=== PATIENT | female | born 1975 | race Caucasian/White ===

== ENCOUNTER 2018-06-01 16:27 | Inpatient (IN) ==
[2018-06-01] MEDS ORDERED: ASPIRIN PO ONE (16:55)
[2018-06-01] MEDS ORDERED: ASPIRIN PR ONE (16:55)
--- NOTE | 2018-06-01 17:14 | Diag Imaging Result Doc PS360 ---
CHEST-2 VIEWS - 06/01/2018 INDICATION: cp COMPARISON: 02/26/2018 FINDINGS: The lungs are normally expanded and clear. Heart size and mediastinal contours are normal. No pneumothorax or pleural effusion. Stable surgical clips in the left upper quadrant. IMPRESSION: Negative exam. Electronically signed by Nate Corcoran 06/01/2018 5:12 PM
[2018-06-01 17:23] LABS: BASO# 0.06 X1000 (0.0-0.2); BASO% 0.6 % (0.0-0.8); EOS# 0.16 X1000 (0.0-0.7); EOS% 1.7 % (0.0-10.0); HEMATOCRIT 46.4 % (37.0-47.0); HEMOGLOBIN 15.9 g/dL (12.0-16.0); IMM GRAN# 0.07 X1000 (0.0-0.04); IMM GRAN% 0.7 % (0.0-0.5); LYMPH# 2.33 X1000 (1.2-3.4); LYMPH% 24.9 % (20.5-51.1); MCH 27.2 PG (27-31); MCHC 34.3 g/dL (33-37); MCV 79.5 FL (81-99); MONO# 0.57 X1000 (0.11-0.59); MONO% 6.1 % (1.7-9.3); MPV 10.1 FL (7.4-10.4); NEUT# 6.16 X1000 (1.4-6.5); PLT 313 X1000 (130-400); RBC 5.84 XMIL (4.2-5.4); RDW 13.7 % (11.5-14.5); WBC 9.35 X1000 (4.8-10.8)
[2018-06-01 17:31] LABS: INR 0.84; PROTIME 12.2 Seconds (11.0-16.0); PTT 26.8 Seconds (22.3-41.8)
[2018-06-01 17:41] LABS: ESTIMATED GFR > 60
--- NOTE | 2018-06-01 17:47 | ED EKG INTERP ---
This chart was entered by Jazmin Calhoun Scribe, acting as scribe for Asa Argueta MD. EKG Interpretation - EKG Time of EKG reading by physician:: 16:28 EKG Read and Signed by:: Asa Argueta EKG Interpretation (*Must complete 3 of following elements*): Abnormal Rate: 97 Rhythm: normal sinus rhythm Comments: possible left atrial enlargement Attestation - Physician/ JAVI Attestation The physician spent face to face time with patient:: No Advanced Practice Provider documentation review:: Supervising physician onsite and consulted in the evaluation and care of this patient. The physician did not have a face to face encounter with the patient. This chart was documented by the indicated scribe, (Jazmin Calhoun Scribe) and accurately reflects the services I performed and decisions made by Kendall france Robert W., MD, as attested by the provider's signature.
[2018-06-01 17:49] LABS: AGAP 16; ALB/GLOB RATIO 1.7; ALBUMIN 4.7 g/dL (3.5-5.0); ALKALINE PHOSPHATASE 120 U/L (32-104); BUN 11 mg/dL (8-22); CALCIUM 9.9 mg/dL (8.8-10.2); CHLORIDE 86 mmol/L (98-107); CK PROFILE 63 U/L (24-173); COSMO 273; CREATININE 0.7 mg/dL (0.5-0.9); GLUCOSE 397 mg/dL (70-104); GOT 27 U/L (10-30); GPT 38 U/L (10-36); POTASSIUM 4.3 mmol/L (3.5-5.1); SODIUM 128 mmol/L (136-145); TCO2 26 mmol/L (25-35); TOTAL BILIRUBIN 0.27 mg/dL (0.20-1.00); TOTAL PROTEIN 7.4 g/dL (6.3-8.3)
[2018-06-01 20:28] LABS: URINE SOURCE CLEAN CATCH
[2018-06-01 20:42] LABS: BILIRUBIN URINE NEGATIVE (NEGATIVE); BLOOD URINE NEGATIVE (NEGATIVE); COLOR YELLOW; GLUCOSE URINE >1000 mg/dL (NEGATIVE); KETONE URINE TRACE mg/dL (NEGATIVE); LEUKOCYTES URINE NEGATIVE (NEGATIVE); NITRITE URINE NEGATIVE (NEGATIVE); PH URINE 5.5; PROTEIN URINE NEGATIVE (NEGATIVE); TURBIDITY URINE CLEAR (CLEAR); UROBILINOGEN URINE NORMAL (NORMAL)
[2018-06-01 20:44] LABS: UR EPITHELIAL CELLS <10 /HPF (<10); URINE BACTERIA NEGATIVE /HPF; URINE RBC <10 /HPF (<10); URINE WBC <10 /HPF (<10)
[2018-06-01] MEDS ORDERED: NS 1,000 ML IV ONE (20:54)
[2018-06-01] MEDS ORDERED: HUMULIN R IV ONE (20:54)
--- NOTE | 2018-06-01 23:33 | PROVIDER DOCUMENTATION ---
This chart was entered by Vickey Whittington Scribe, acting as scribe for Darin Gaona CRNP. HPI-Chest Pain - General Chief Complaint: Chest Pain Stated Complaint: CHEST PAIN Time Seen by Provider: 06/01/18 20:42 Source: patient Allergies/Adverse Reactions: Patient Allergies Allergy/AdvReac Type Severity Reaction Status Date / Time topiramate [From Topamax] Allergy SHORTNESS Verified 03/06/18 10:30 OF BREATH metoclopramide HCl * AdvReac Severe DIZZINESS Verified 03/06/18 10:30 [From Reglan] Home Medications: Home Medication List Medication Instructions Recorded Confirmed Last Taken Type Omeprazole [Prilosec] 40 mg PO PRN PRN 11/29/16 03/06/18 03/03/18 History Sitagliptin Phos/Metformin HCl 1 each PO TID 11/29/16 03/06/18 03/06/18 History [Janumet 50-500 mg Tablet] Tizanidine HCl [Zanaflex] 4 mg PO BID PRN PRN 11/29/16 06/01/18 03/06/18 History Sertraline HCl [Zoloft] 100 mg PO BID 01/07/17 06/01/18 03/06/18 History Albuterol Sulfate Inhaler 2 puff INH Q6H PRN #1 inhaler 03/06/18 Unknown Rx [Ventolin Hfa] Azithromycin [Zithromax Z-Mark] 250 mg PO DIRECTED #1 pkg 03/06/18 Unknown Rx Glimepiride 2 mg PO ACB 03/06/18 03/06/18 03/05/18 History Meclizine HCl [Antivert] 25 mg PO TID PRN PRN 03/06/18 03/06/18 03/02/18 History Nebivolol [Bystolic] 5 mg PO DAILY 03/06/18 03/06/18 03/06/18 History Nortriptyline [Pamelor] 25 mg PO BID 03/06/18 06/01/18 03/06/18 History Sulindac 200 mg PO BID 03/06/18 03/06/18 03/06/18 History Trazodone [Desyrel] 100 mg PO QHS 03/06/18 06/01/18 03/06/18 History Ibuprofen 800 mg PO Q8HR PRN #20 tab 05/19/18 Unknown Rx Triamterene/Hydrochlorothiazid 1 each PO DAILY 06/01/18 06/01/18 Unknown History [Dyazide 37.5-25 Capsule] - History of Present Illness-CP Nature of Presenting Problem: Pt is a 43 y/ow F presents to the ED with intermittent left-sided chest pain that radiates down her left arm since yesterday. Denies SOB or any other symptoms. Denies known cardiac hx, hx of DM and HTN. Non-toxic in appearance. Heart score 3. Location: reports: substernal Chest Pain Radiation: reports: arms (left arm) Quality of Pain: reports: aching Severity in ED: moderate Onset/Duration: 24 hours ago Timing: still present Context/Activities at Onset: reports: none Modifying Factors: worse with: coughing, eating Associated Symptoms: denies: back pain, fever/chills Nitro Today/Relief: no nitro taken today Aspirin Treatment Today: 325 mg x 1, provided by ED Review of Systems - Adult - REVIEW OF SYSTEMS - ADULT Constitutional: denies: chills, fever Eyes: reports: no symptoms reported Ears, Nose, Mouth & Throat: denies: ear pain, throat pain Cardiovascular: reports: chest pain. denies: edema, palpitations Respiratory: denies: cough, shortness of breath, wheezing Gastrointestinal: denies: abdominal pain, nausea, vomiting Genitourinary: reports: no symptoms reported Musculoskeletal: denies: back pain, neck pain Integumentary: reports: no symptoms reported Neurological: denies: dizziness/vertigo, headache/migraines Psychiatric: reports: no symptoms reported Endocrine: reports: no symptoms reported Hematologic/Lymphatic: reports: no symptoms reported Allergic/Immunologic: reports: no symptoms reported All Other Systems: Reviewed and Negative Past History - Adult - PAST MEDICAL HISTORY-ADULT Review of Records: reports: Old Records Reviewed, Nursing Assessment Review, Medications Reviewed Major Childhood Illnesses: reports: denies history Cardiovascular: reports: HTN, murmur Respiratory: reports: denies history Gastrointestinal: reports: GERD Obstetrical/Gynecological: reports: denies history Genitourinary: reports: denies history Musculoskeletal: reports: denies history Neurological: reports: denies history Psychiatric: reports: depression Endocrine/Immune: reports: Diabetes Other Conditions: reports: denies history - PRIOR SURGERIES/PROCEDURES Surgical/Procedure History: reports: cholecystectomy, hysterectomy, BTL - PRIOR HOSPITALIZATIONS Prior Hospitalizations: reports: none - IMMUNIZATION STATUS Childhood Immunizations: See Nurse Assessment Flu Vaccine: See Nurse Assessment - FAMILY HISTORY Family History: CAD over 55 yo (Father and grandparents) - SOCIAL HISTORY Smoking: non-smoker Living Situation: alone Physical Exam-General - PHYSICAL EXAM-ADULT Initial Vital Signs Reviewed: Yes - CONSTITUTIONAL General Appearance: appears well, alert, no apparent distress. negative: lethargic, slow to respond - EYES Eyes: PERRL/EOMI, pink conjunctivae - HEAD, EARS, NOSE, MOUTH & THROAT HENMT: normocephalic/atraumatic, moist mucous membranes - NECK Neck: non-tender, full range of motion, supple, normal inspection - RESPIRATORY Respiratory: chest non-tender, lungs clear, normal breath sounds, no pleuratic chest pain, no respiratory distress, no accessory muscle use - CARDIOVASCULAR Cardiovascular: normal peripheral pulses, regular rate, rhythm, no edema, no gallop, no murmur - GASTROINTESTINAL (ABDOMEN) Abdominal Exam: normal bowel sounds, non tender, soft, no organomegaly - MUSCULOSKELETAL Back Exam: normal inspection Extremity: normal range of motion, non-tender, normal gait, normal inspection, no pedal edema - SKIN Integumentary: normal color, normal turgor, warm/dry - NEUROLOGIC Neurologic: grossly normal, no motor/sensory deficits. negative: aphasia, facial droop - PSYCHIATRIC Psych/Mental Status: normal mood/affect, normal thought content, normal thought process, oriented x 3 Progress - PLAN OF CARE/RESULTS Progress/Plan/Lab Results: Vital Signs - 8 hr 06/01/18 16:50 06/01/18 23:06 Temperature 98.1 F 98.8 F Pulse Rate 97 H 94 H Respiratory Rate 18 18 Blood Pressure 129/84 136/86 O2 Sat by Pulse Oximetry 98 98 Laboratory Results - last 24 hr 06/01/18 06/01/18 06/01/18 16:46 16:46 16:46 WBC 9.35 RBC 5.84 H Hgb 15.9 Hct 46.4 MCV 79.5 L MCH 27.2 MCHC 34.3 RDW Std Deviation 13.7 Plt Count 313 MPV 10.1 Immature Gran % (Auto) 0.7 H Neut % (Auto) 66.0 Lymph % (Auto) 24.9 [place] % (Auto) 6.1 Eos % (Auto) 1.7 Baso % (Auto) 0.6 Immature Gran # (Auto) 0.07 H Neut # (Auto) 6.16 Lymph # (Auto) 2.33 [place] # (Auto) 0.57 Eos # (Auto) 0.16 Baso # (Auto) 0.06 PT INR PTT (Actin FS) Sodium 128 L Potassium 4.3 Chloride 86 L Carbon Dioxide 26 Anion Gap 16 BUN 11 Creatinine 0.7 Estimated GFR/1.73 m2 > 60 BUN/Creatinine Ratio 16 Glucose 397 H POC Glucose Calculated Osmolality 273 Calcium 9.9 Total Bilirubin 0.27 AST 27 ALT 38 H Alkaline Phosphatase 120 H Creatine Kinase 63 Troponin T Uck-O-Xligummnucj Pept < 5 L Total Protein 7.4 Albumin 4.7 Globulin 2.7 Albumin/Globulin Ratio 1.7 Urine Source Urine Color Urine Turbidity Urine pH Ur Specific [employer] Urine Protein Ur Glucose (Stick) Ur Ketones (Stick) Urine Blood Urine Nitrite Urine Bilirubin Urobilinogen Dipstick Urine Leukocytes Urine WBC (Auto) Urine RBC (Auto) U Epithel Cells (Auto) Urine Bacteria (Auto) 06/01/18 06/01/18 06/01/18 16:46 16:46 17:45 WBC RBC Hgb Hct MCV MCH MCHC RDW Std Deviation Plt Count MPV Immature Gran % (Auto) Neut % (Auto) Lymph % (Auto) [place] % (Auto) Eos % (Auto) Baso % (Auto) Immature Gran # (Auto) Neut # (Auto) Lymph # (Auto) [place] # (Auto) Eos # (Auto) Baso # (Auto) PT 12.2 INR 0.84 PTT (Actin FS) 26.8 Sodium Potassium Chloride Carbon Dioxide Anion Gap BUN Creatinine Estimated GFR/1.73 m2 BUN/Creatinine Ratio Glucose POC Glucose Calculated Osmolality Calcium Total Bilirubin AST ALT Alkaline Phosphatase Creatine Kinase Troponin T < 0.010 Zzx-V-Zhzllknuuni Pept Total Protein Albumin Globulin Albumin/Globulin Ratio Urine Source CLEAN CATCH Urine Color YELLOW Urine Turbidity CLEAR Urine pH 5.5 Ur Specific [employer] 1.040 Urine Protein NEGATIVE Ur Glucose (Stick) >1000 A Ur Ketones (Stick) TRACE A Urine Blood NEGATIVE Urine Nitrite NEGATIVE Urine Bilirubin NEGATIVE Urobilinogen Dipstick NORMAL Urine Leukocytes NEGATIVE Urine WBC (Auto) <10 Urine RBC (Auto) <10 U Epithel Cells (Auto) <10 Urine Bacteria (Auto) NEGATIVE 06/01/18 06/01/18 06/01/18 19:46 19:46 22:30 WBC RBC Hgb Hct MCV MCH MCHC RDW Std Deviation Plt Count MPV Immature Gran % (Auto) Neut % (Auto) Lymph % (Auto) [place] % (Auto) Eos % (Auto) Baso % (Auto) Immature Gran # (Auto) Neut # (Auto) Lymph # (Auto) [place] # (Auto) Eos # (Auto) Baso # (Auto) PT INR PTT (Actin FS) Sodium Potassium Chloride Carbon Dioxide Anion Gap BUN Creatinine Estimated GFR/1.73 m2 BUN/Creatinine Ratio Glucose POC Glucose 197 H Calculated Osmolality Calcium Total Bilirubin AST ALT Alkaline Phosphatase Creatine Kinase 59 Troponin T < 0.010 Gch-K-Gnsynczbyzd Pept Total Protein Albumin Globulin Albumin/Globulin Ratio Urine Source Urine Color Urine Turbidity Urine pH Ur Specific [employer] Urine Protein Ur Glucose (Stick) Ur Ketones (Stick) Urine Blood Urine Nitrite Urine Bilirubin Urobilinogen Dipstick Urine Leukocytes Urine WBC (Auto) Urine RBC (Auto) U Epithel Cells (Auto) Urine Bacteria (Auto) Orders Category Date Time Status Cardiac Monitoring DIRECTED Care 06/01/18 16:56 Active FSBS [Finger Stick Blood Sugar (ED)] DIRECTED Care 06/01/18 22:20 Active Oxygen Therapy- ED Nursing DIRECTED Care 06/01/18 16:56 Active Saline Loc NOW Care 06/01/18 16:56 Active CHEST-2 VIEWS [RAD] Stat Exams 06/01/18 16:56 Completed CBC WITH ELECTRONIC DIFF [HEME] Stat Lab 06/01/18 16:46 Completed CK PROFILE [SP CHEM] Stat Lab 06/01/18 16:46 Completed CK PROFILE [SP CHEM] Timed Lab 06/01/18 19:46 Completed COMPREHENSIVE METABOLIC PANEL [CHEM] Stat Lab 06/01/18 16:46 Completed PRO B-NATRIURETIC PEPTIDE Stat Lab 06/01/18 16:46 Completed PROTIME WITH INR [COAG] Stat Lab 06/01/18 16:46 Completed PTT [COAG] Stat Lab 06/01/18 16:46 Completed TROPONIN T Stat Lab 06/01/18 16:46 Completed TROPONIN T Timed Lab 06/01/18 19:46 Completed UA NIMS W/REFLEX CULT [URINALYSIS] Stat Lab 06/01/18 17:45 Completed 0.9% Sodium Chloride Inj [Ns] 1,000 ml Med 06/01/18 20:54 Discontinued IV 999 mls/hr Aspirin Med 06/01/18 16:55 Discontinued 300 mg TX NOW ONE Aspirin Med 06/01/18 16:55 Discontinued 325 mg PO NOW ONE Insulin Human Regular [Humulin R] Med 06/01/18 20:54 Discontinued 10 unit IV NOW ONE Nitroglycerin Sl [Nitroglycerin] Med 06/01/18 22:52 Active 0.4 mg SL Q5M PRN PRN CP/SOB/Palp >45 yrs of Age Stat Oth 06/01/18 16:55 Ordered EKG [EKG] Stat Ther 06/01/18 16:56 Ordered EKG [EKG] Stat Ther 06/01/18 20:52 Ordered EKG [EKG] Stat Ther 06/01/18 22:49 Ordered Transfer/Admit Order [TRANSFER] Routine Transfer 06/01/18 23:17 Ordered Discussed case with Dr. Romero who accepted admission and states that he will place orders. Pt aware and in agreement with admission plan. States she is still having chest pain but reports improvement as compared to arrival. Result Diagrams: 06/01/18 16:46 06/01/18 16:46 - EKG 1 Time of EKG reading by physician:: 23:00 EKG Read and Signed by:: Shekhar Figueroa EKG Interpretation (*Must complete 3 of following elements*): Normal Rate: 94 Rhythm: NSR [place]: normal QRS: normal [place] Interval: normal ST Wave: normal - XRAY 1 XRAY Study: Chest Impression: Normal (INDICATION: cp COMPARISON: 02/26/2018 FINDINGS: The lungs are normally expanded and clear. Heart size and mediastinal contours are normal. No pneumothorax or pleural effusion. Stable surgical clips in the left upper quadrant. IMPRESSION: Negative exam. Electronically signed by Nate Corcoran 06/01/2018 5:12 PM) Departure - Departure Date of Disposition Decision: 06/01/18 Time of Disposition Decision: 23:32 DIAGNOSIS: Chest pain Qualifiers: Chest pain type: unspecified Qualified Code(s): R07.9 - Chest pain, unspecified Disposition: ADMITTED INPATIENT 09 Certified Medical Emergency: Emergent Condition: Stable Referrals and Follow-Ups: Mark Aparicio MD [Primary Care Provider] - - Critical Care Note This patient required my direct & personal management of CC.: No Attestation - Physician/ JAVI Attestation Patient care was provided by Advanced Practice Provider:: Yes Advanced Practice Provider:: Darin Gaona Advanced Practice Provider documentation review:: The Mid-level provider documentation, treatment plan and medical decision making was reviewed by the physician who agrees with all treatment and medical decision making by the MLP. The physician spent face to face time with patient:: No Advanced Practice Provider documentation review:: Supervising physician onsite and consulted in the evaluation and care of this patient. The physician did not have a face to face encounter with the patient. This chart was documented by the indicated scribe, (Vickey Whittington Scribe) and accurately reflects the services I performed and decisions made by , Darin Gaona CRNP, as attested by the provider's signature.
[2018-06-01] MEDS ORDERED: ZOFRAN IV PRN (23:53)
[2018-06-01] MEDS: NITROGLYCERIN SL PRN (23:59)
[2018-06-02 00:28] LABS: ALLEN TEST YES; BE 0.4 mmoll (-3.0-3.0); BLOOD TYPE ARTERIAL; HCO3-(ACT) 25.2 mmoll (20.0-26.0); METHB 0.6 % (0.0-1.5); O2(CT) 19.8 mL/dL (15.0-23.0); O2HB 95.5 % (95.0-99.0); PCO2(98.6) 32 mmHg (35-45); PO2(98.6) 80 mmHg (60-100); SAMPLE BLOOD; SAO2 98.6 % (95.0-100.0); THB 14.7 g/dL (11.5-17.4); pH(98.6) 7.47 (7.35-7.45)
[2018-06-02 00:30] LABS: MODALITY ROOM AIR
[2018-06-02] MEDS: NITROGLYCERIN SL PRN ×2 (00:34→00:40)
[2018-06-02] MEDS ORDERED: MORPHINE IV PRN (01:07)
[2018-06-02] MEDS: LOVENOX SUBQ SCH ×2 (01:33→23:02)
[2018-06-02 02:29] LABS: ACETONE SERUM SMALL (NEGATIVE)
[2018-06-02 02:33] LABS: HEMOGLOBIN A1C 10.4 % (4.8-6.0)
[2018-06-02] MEDS ORDERED: FLU VACCINE IM ONE (02:33)
[2018-06-02 02:40] LABS: CK PROFILE 52 U/L (24-173)
[2018-06-02] MEDS ORDERED: HUMALOG DOSE (PARKWAY) SUBQ SCH (02:41)
[2018-06-02] MEDS ORDERED: ZANAFLEX PO PRN (02:41)
[2018-06-02 02:42] LABS: AGAP 18; BUN 12 mg/dL (8-22); CALCIUM 8.4 mg/dL (8.8-10.2); CHLORIDE 94 mmol/L (98-107); COSMO 278; CREATININE 0.6 mg/dL (0.5-0.9); ESTIMATED GFR > 60; GLUCOSE 276 mg/dL (70-104); POTASSIUM 3.5 mmol/L (3.5-5.1); SODIUM 134 mmol/L (136-145); TCO2 22 mmol/L (25-35)
[2018-06-02] MEDS ORDERED: PNEUMOVAX 23 IM ONE (02:53)
--- NOTE | 2018-06-02 03:31 | HISTORY AND PHYSICAL ---
HISTORY AND PHYSICAL ADDENDUM: CHIEF COMPLAINT: Chest pain. HISTORY OF PRESENT ILLNESS: This is a 43-year-old female with diabetes. She has a father with heart disease, but she does not know how old he was when he had that. Hypertension, as well. She came in with left-sided chest pain. She says she has exertional chest pain when she exercises, as well. She has had persistent chest pain for the last 24 hours. PHYSICAL EXAMINATION: Cardiovascular was unremarkable. DIAGNOSTIC DATA: EKG was unremarkable. First 2 sets of cardiac enzymes were negative. ASSESSMENT AND PLAN: She will be placed in observation for chest pain. We will get a stress test and echocardiogram, and go from there. This is a [id number] encounter note with Chirag Valero. cc: Elijah Romero MD
[2018-06-02] MEDS: NS 1,000 ML IV SCH ×4 (04:32→19:46)
--- NOTE | 2018-06-02 05:18 | HISTORY AND PHYSICAL ---
CHIEF COMPLAINT: Chest pain. HISTORY OF PRESENT ILLNESS: This is a pleasant 43-year-old female with a history of diabetes mellitus and hypertension. Her diabetes mellitus appears to be poorly controlled. She was fairly hyperglycemic in the Emergency Room. She stated that she started having chest pain yesterday; it was substernal radiating into her left arm. It apparently was worse with coughing and eating. Nothing made it better. She does not have a cardiac history; however, she does have a large family history of cardiac disease in both parents and grandparents. Her heart score was evaluated in the Emergency Room and found to be 3. Her troponins continued to be negative in the Emergency Room x 2 sets. She will be placed in the hospital for a stress test tomorrow morning. PAST MEDICAL HISTORY: Diabetes and hypertension. PREVIOUS SURGICAL HISTORY: Cholecystectomy, hysterectomy, bilateral tubal ligation. SOCIAL HISTORY: No alcohol, tobacco or illicit drug use. FAMILY HISTORY: Strong family history of coronary artery disease in parents and grandparents. ALLERGIES: Topiramate and Reglan. HOME MEDICATIONS: The list of home medications has not been reconciled. Order was placed for nursing to reconcile home medications in the computer. These will be restarted when appropriate. REVIEW OF SYSTEMS: The patient denied any fever, chills, nausea or vomiting. A 14-point review of systems was conducted with the patient. Pertinent positives listed above in the HPI; all other systems reviewed and found to be negative. PHYSICAL EXAMINATION: VITAL SIGNS: Temperature 98.1 degrees, pulse 97, respirations 18, blood pressure 129/84, oxygen saturation 98% on room air. GENERAL: Obese, 43-year-old female lying on the ER stretcher. Answers all questions appropriately. Alert and oriented x 3, in no acute distress. She does still complain of chest pain. HEENT: Head is atraumatic, normocephalic. Pupils equal, round and reactive to light. Extraocular eye movements intact. Sclerae anicteric. Conjunctivae are pink. Oral mucosa is dry. NECK: Supple. No JVD, no thyromegaly. Trachea is midline. No cervical lymphadenopathy. CARDIAC: S1, S2 appreciated. No murmurs, rubs or gallops. LUNGS: Clear to auscultation bilaterally. No rhonchi, wheezes or rales. Symmetric rise and fall respirations. ABDOMEN: Protuberant, soft, nontender, nondistended. Bowel sounds present in all 4 quadrants. Normal active bowel sounds. No pulsatile mass. No organomegaly. EXTREMITIES: No clubbing, cyanosis or edema. 2+ pedal pulses bilaterally. GENITOURINARY: No bladder distention. Patient voids. Otherwise deferred. NEUROLOGICAL: No focal motor or sensory deficits. Otherwise nonfocal examination. DIAGNOSTIC DATA: Chest x-ray NAD. EKG shows normal sinus rhythm, rate 97. Possible left atrial enlargement. Laboratory data: CBC within normal limits. Sodium 128, potassium 4.3, chloride 86, carbon dioxide 26, BUN 11, creatinine 0.7, glucose 397. Urinalysis: Greater than 1000 glucose, trace ketones. ASSESSMENT AND PLAN: 1. Chest pain. Rule out acute myocardial infarction. We will give morphine and nitroglycerin. Stress test in the a.m. and lipid profile. 2. Diabetes mellitus type 2 with hyperglycemia. This is poorly controlled. We will start fingerstick blood sugars q. 4 hours with sliding-scale insulin. 3. Fluid volume depletion secondary to #2. Normal saline bolus was given in the Emergency Room. Continue normal saline. 4. Hypertension. We will continue home medications when available. Further recommendations depending on patient's clinical course. Dictated by SHIN Pham for Elijah Romero MD cc: SHIN Pham MD
[2018-06-02] MEDS: HUMALOG DOSE (PARKWAY) SUBQ SCH ×4 (06:17→20:59)
[2018-06-02 07:12] LABS: BASO# 0.05 X1000 (0.0-0.2); BASO% 0.6 % (0.0-0.8); EOS# 0.14 X1000 (0.0-0.7); EOS% 1.8 % (0.0-10.0); HEMATOCRIT 42.5 % (37.0-47.0); HEMOGLOBIN 14.5 g/dL (12.0-16.0); IMM GRAN# 0.08 X1000 (0.0-0.04); LYMPH% 29.5 % (20.5-51.1); MCH 27.2 PG (27-31); MCHC 34.1 g/dL (33-37); MCV 79.6 FL (81-99); MONO# 0.63 X1000 (0.11-0.59); MONO% 8.1 % (1.7-9.3); PLT 273 X1000 (130-400); RBC 5.34 XMIL (4.2-5.4); RDW 13.4 % (11.5-14.5)
--- NOTE | 2018-06-02 07:43 | EKG Report ---
Test Performed on : 06/01/2018 4:38:19 PM Test Reason : cp Blood Pressure : / mmHG Vent. Rate : 097 BPM Atrial Rate : 097 BPM P-R Int : 178 ms QRS Dur : 066 ms QT Int : 344 ms P-R-T Axes : 068 040 032 degrees QTc Int : 436 ms Normal sinus rhythm. Possible Left atrial enlargement Borderline ECG When compared with ECG of 25-SEP-2016 10:44, T wave inversion now evident in Inferior leads Unconfirmed Result
--- NOTE | 2018-06-02 07:45 | EKG Report ---
Test Performed on : 06/01/2018 11:00:59 PM Test Reason : CP Blood Pressure : / mmHG Vent. Rate : 094 BPM Atrial Rate : 094 BPM P-R Int : 202 ms QRS Dur : 072 ms QT Int : 368 ms P-R-T Axes : 053 034 021 degrees QTc Int : 460 ms Normal sinus rhythm. Normal ECG When compared with ECG of 01-JUN-2018 16:38, (Unconfirmed) No significant change was found Unconfirmed Result
[2018-06-02] MEDS: ZOLOFT PO SCH ×2 (08:27→20:59)
[2018-06-02] MEDS: ASPIRIN PO SCH (08:27)
[2018-06-02] MEDS: DYAZIDE PO SCH (08:27)
[2018-06-02] MEDS: PAMELOR PO SCH ×2 (08:28→20:59)
--- NOTE | 2018-06-02 10:59 | EKG Report ---
Test Performed on : 06/02/2018 10:52:19 AM Test Reason : cp Blood Pressure : / mmHG Vent. Rate : 092 BPM Atrial Rate : 092 BPM P-R Int : 190 ms QRS Dur : 064 ms QT Int : 384 ms P-R-T Axes : 065 065 026 degrees QTc Int : 474 ms Normal sinus rhythm. Septal infarct , age undetermined Abnormal ECG When compared with ECG of 01-JUN-2018 23:00, (Unconfirmed) No significant change was found Unconfirmed Result
[2018-06-02] MEDS ORDERED: LEXISCAN ONE (12:49)
--- NOTE | 2018-06-02 13:11 | GRADED EXERCISE REPORT ---
DATE: 06/02/2018 PROCEDURE: Lexiscan stress portion, electrocardiogram portion and interpretation. INDICATION: Chest pain. DESCRIPTION OF PROCEDURE IN DETAIL: Baseline EKG showed no specific changes and no ischemic changes. Essentially normal sinus rhythm. Heart rate 95, blood pressure 143/93. She underwent Lexiscan infusion 0.4 mg under no major ST changes. She did have some hyperventilation, and therefore baseline was a little bit varied, but there were no significant ST changes. During a portion of the test, she did develop some shortness of breath, but no chest pain. Peak heart rate 113, peak blood pressure 150/93. The test was felt to be clinically and electrically negative. Myocardial perfusion imaging is reported separately. cc: Elijah Romero MD
[2018-06-02] MEDS: TYLENOL PO PRN (16:53)
[2018-06-02] MEDS ORDERED: DESYREL PO SCH (21:00)
[2018-06-03] MEDS: NS 1,000 ML IV SCH (04:37)
[2018-06-03 05:28] VITALS: BP 115/70
[2018-06-03] MEDS: HUMALOG DOSE (PARKWAY) SUBQ SCH ×3 (06:15→12:59)
[2018-06-03] MEDS: DYAZIDE PO SCH (08:40)
[2018-06-03] MEDS: TYLENOL PO PRN (08:40)
[2018-06-03] MEDS: ASPIRIN PO SCH (08:40)
[2018-06-03] MEDS: ZOLOFT PO SCH (08:40)
[2018-06-03] MEDS: PAMELOR PO SCH (08:41)
--- NOTE | 2018-06-03 13:46 | DISCHARGE SUMMARY ---
ADMISSION DATE: 06/01/2018 DISCHARGE DATE: 06/03/2018 DISCHARGE DIAGNOSES: 1. Chest pain. 2. Uncontrolled type 2 diabetes mellitus. 3. Hypertension. 4. Dyslipidemia. HOSPITAL COURSE: This is a 43-year-old female who has been having type 2 diabetes mellitus for the past 3 years. According to the patient, her diabetes has been poorly controlled and she only takes Januvia 100 mg daily for her diabetes. She also has history of hypertension, and did not know about her cholesterol status. She presented to the emergency department with chest pain for which she was admitted to the hospital and serial cardiac enzymes were obtained, which were found to be negative for any myocardial ischemia. She also had a stress test done during this hospital admission that was found to be negative for any ischemia. She did have significant dyslipidemia with LDL levels of 188. Her triglycerides were also found to be very high at 757. Since acute myocardial ischemia has been ruled out, she is going to be discharged home today. I did discuss with the patient that she needs to follow up with her PCP, and also needs to see an copy clerk because of her poorly controlled diabetes. Furthermore, I am going to refer her to Dr. Martinez as an outpatient, who has seen her during this hospital admission. I am going to refer her to Cardiology as outpatient as well. DISCHARGE MEDICATIONS: 1. Aspirin 81 mg orally once daily. 2. Atorvastatin 40 mg orally once daily at bedtime. 3. Metformin 1 g orally twice daily. 4. Sitagliptin 100 mg orally once daily. 5. Amaryl 2 mg orally once daily in the morning. 6. Dyazide 37.5/25 orally once daily in the morning. 7. Trazodone 200 mg orally once daily at bedtime. 8. Tizanidine 4 mg orally twice daily as needed for muscle spasms. 9. Sertraline 100 mg orally twice daily. 10. Nortriptyline 25 mg orally twice daily. FOLLOW-UP: She will follow up with Dr. Mark Aparicio in approximately 1 week and follow up with Dr. Jose Martinez and Dr. Bennett in approximately 2 weeks. cc: Gris Power MD
--- NOTE | 2018-06-03 14:17 | ECHO REPORT ---
ORDER DATE: 06/02/2018 ECHOCARDIOGRAPHIC MEASUREMENTS: 1. Left ventricular end-diastolic diameter 3.8. 2. End-systolic diameter 2.3. 3. Septal thickness 1.1. 4. Posterior wall thickness 1.1, 5. Aortic root 3.0. 6. Left atrium 3.3. SUMMARY: 1. Technically difficult study due to limited acoustic window quality. Intravenous echo contrast agent Definity was utilized to enhance endocardial definition. 2. Aortic valve is without evidence of structural abnormality and opens adequately on 2- dimensional images. Peak gradient across the aortic valve is less than 10 mmHg. Mitral and tricuspid valves are without evidence of structural abnormality while pulmonic valve is not well demonstrated. Aortic root is normal in size. 3. Normal left ventricular dimension is demonstrated. Estimated left ventricular ejection fraction appears to be at least 65%. No regional wall motion abnormalities are evident. Doppler suggests grade 1 left ventricular diastolic dysfunction. Left atrium, right atrium, right ventricle were normal in size with grossly preserved right ventricular systolic function. 4. No pericardial effusion. 5. Appearance of inferior vena cava suggests normal central venous pressure. cc: MD Alejandro Lindsey MD
--- NOTE | 2018-06-03 19:13 | Diag Imaging Result Document ---
PROCEDURE NAME: MYOCARDIAL PERF SCAN, STR/REST - 06/02/2018 REQUESTING PHYSICIAN: Dr. Romero, Hospitalist Service, [facility] DESCRIPTION OF PROCEDURE: The patient came into the nuclear lab and received a rest injection of technetium 99 sestamibi 11.9 mCi. Multiple tomographic views of the cardiac structures were obtained at rest. Subsequently the patient underwent a infusion of Lexiscan 0.4 mg per protocol. At peak infusion was injected with technetium 99 sestamibi 40.4 mCi. Multiple tomographic views of the heart were obtained following completion of the protocol. SUMMARY OF ELECTROCARDIOGRAPHIC PORTION OF THE STUDY: The ECG portion has been reported by Dr. Romero. SUMMARY OF MYOCARDIAL PERFUSION PORTION OF THE STUDY: Poststress tomographic views of the left ventricle showed normal homogeneous distribution of radiotracer throughout the entire left ventricular myocardium. There is no evidence of any postexercise defect. The rest images showed normal perfusion. The polar plots revealed the same. There is no evidence of neither inducible ischemia nor myocardial scar. Gated SPECT shows normal left ventricular systolic function. Ejection fraction is 90% with no wall motion abnormality. Lung/heart ratio is normal. TID is normal. CONCLUSIONS: In summary, this study showed: 1. Normal poststress myocardial perfusion scan. There is no scintigraphic evidence of effort induced myocardial ischemia. 2. Normal left ventricular systolic function. Ejection fraction is estimated at 90% with normal ventricular volumes and no wall motion abnormality. 3. This study represents low risk for ischemic events. cc: MD Ben Smith CRNP
== END 2018-06-03 13:29 | disposition home or self-care (01) | DRG 313 ==
LOC: SUPCPDRO → ED 16:27 → SUATTDRO 16:35 → P.MEDSURG 06-02 01:07
PROVIDERS: ATTEND Internal Medicine
CPT/HCPCS: 71020; 71046; 78452; 80048; 80053; 80061; 81001; 82009; 82550; 82805; 82948; 83036; 83721; 83880; 84484; 85025; 85610; 85730; 90686; 90732; 93005; 93017; 93306; 94761; 96360; 96372; 99285; A9270; A9500; C8929; J1650; J1815; J2785; J7030; Q9957; XXXXX